=== PATIENT | female | born 1985 | race Caucasian/White ===

== ENCOUNTER 2019-10-15 09:32 | Emergency (ER) | payer OTHER, SELFPAY ==
[2019-10-15] MEDS ORDERED: SODIUM CHLORIDE 0.9% 1000ML 1,000 ML IVS ONE (09:46)
[2019-10-15] MEDS ORDERED: ONDANSETRON ODT 8 MG TAB SL ONE (09:46)
[2019-10-15] MEDS ORDERED: PANTOPRAZOLE SODIUM IV 40 MG VIAL IV ONE (09:58)
[2019-10-15] MEDS ORDERED: PROMETHAZINE HCL INJ 25 MG in SODIUM CHLORIDE 0.9% 50ML 50 ML IVPB ONE (09:58)
[2019-10-15] MEDS ORDERED: PENICILLIN BENZATHINE 1.2 MU 1.2 MU/2 ML SYG IM ONE (10:52)
--- NOTE | 2019-10-15 11:16 | RAD ---
EXAM: Abdomen Series CLINICAL INDICATION: Abdominal pain COMPARISON: There is no previous study for comparison. FINDINGS: A single view of the chest reveals the heart size is normal. The pulmonary vessels are unremarkable. The lungs are clear. There is no evidence of free air under the hemidiaphragms. 2views of the abdomen were obtained. There is a nonspecific bowel gas pattern with no radiographic evidence of bowel obstruction. There are no dilated loops of small bowel. There is no evidence of pneumoperitoneum or pathologic calcifications. Surgical changes from lap band procedure are noted. IMPRESSION: No evidence of an acute intraabdominal process. Electronically signed by: Pérez Valverde MD 10/15/2019 11:12 AM CDT
[2019-10-15] MEDS ORDERED: MORPHINE SULFATE INJ 10 MG/ML VIAL IV ONE (11:18)
[2019-10-15] MEDS ORDERED: ALUM & MAG HYDROX-SIMETHICONE 30 ML, LIDOCAINE VISCOUS 2% 15 ML PO ONE ×2 (11:18)
--- NOTE | 2019-10-15 12:12 | CT ---
EXAM: CT Abdomen and Pelvis With Intravenous Contrast CLINICAL HISTORY: severe abd pain, nv, hx lap band pblms TECHNIQUE: Axial computed tomography images of the abdomen and pelvis with intravenous contrast. Sagittal and coronal reformatted images were created and reviewed. This CT exam was performed using one or more of the following dose reduction techniques: automated exposure control, adjustment of the mA and/or kV according to patient size, and/or use of iterative reconstruction technique. COMPARISON: 12/02/2012. FINDINGS: Lung bases: Unremarkable. No mass. No consolidation. ABDOMEN: Liver: Unremarkable. No mass. Gallbladder and bile ducts: Unremarkable. No calcified stones. No ductal dilation. Pancreas: Unremarkable. No mass. No ductal dilation. Spleen: Unremarkable. No splenomegaly. Adrenals: Unremarkable. No mass. Kidneys and ureters: Unremarkable. No solid mass. No hydronephrosis. Stomach and bowel: Gastric band in good position. There is fluid distention and mild thickening of the fundus cranial to the band. PELVIS: Appendix: No findings to suggest acute appendicitis. Bladder: Unremarkable. No mass. Reproductive: Unremarkable as visualized. ABDOMEN and PELVIS: Intraperitoneal space: Unremarkable. No free air. No significant fluid collection. Bones/joints: No acute fracture. No dislocation. Soft tissues: Unremarkable. Vasculature: Unremarkable. No abdominal aortic aneurysm. Lymph nodes: Mildly prominent nonspecific right lower quadrant lymph nodes unchanged likely reactive. Tubes, lines and devices: There is a 5.9 x 5.9 x 5.5 cm cyst in the left ovary. Intrauterine contraceptive device in good position. IMPRESSION: 1. Mild thickening and fluid distention of the gastric fundus cranial to the gastric band. Mild gastritis not excluded. 2. Left ovarian cyst measuring 5.9 cm. Recommend pelvic sonography to include Doppler assessment of the ovaries. Electronically signed by: Geraldine Gardner MD 10/15/2019 12:09 PM CDT
[2019-10-15] MEDS ORDERED: SCOPOLAMINE PATCH 1.5MG 1 EA TD ONE (12:23)
--- NOTE | 2019-10-15 12:51 | ED.PDOC ---
History of Present Illness - General Chief Complaint: Abdominal Pain Stated Complaint: Abdominal pain and vomitting x 3 days Time Seen by Provider: 10/15/19 09:44 Source: patient Exam Limitations: no limitations - History of Present Illness Initial Comments: The patient is a 33-year-old female with a lap band in place presenting after 3 to 4 days of nausea and vomiting. The patient reports that she thinks she is going to have to have her LAP-BAND out as she saw the bariatric specialist around 3 weeks ago who did a swallow study indicating that he felt that the LAP-BAND might be growing into the stomach. The patient has been off of all acid reducing medications for at least a month. Prior to that she was on omeprazole high dose twice daily. She does have known gallstones but is not really having right upper quadrant pain. The patient has been having a small amount of blood in the vomitus as well. She has been up several times here. Abdominal pain appears to be in the epigastric area. The patient reports that she cannot come into the hospital secondary to having to take care of her daughter who has multiple medical problems. Timing/Duration: other - 3 days Severity: moderate Improving Factors: nothing Worsening Factors: nothing Associated Symptoms: loss of appetite, malaise, nausea/vomiting Allergies/Adverse Reactions: Allergies NO KNOWN ALLERGY Allergy (Verified 10/15/19 09:56) Home Medications: Ambulatory Orders Omeprazole 40 mg PO BID #60 cap 10/15/19 Ondansetron Odt [Zofran ODT] 4 mg PO Q8HR PRN #10 tab 10/15/19 Promethazine HCl 25 mg PO Q6H PRN #14 tab 10/15/19 Promethazine HCl 25 mg MO Q8HRS PRN #14 sup 10/15/19 Sucralfate Tab [Carafate Tab] 1 gm PO QID #120 tab 10/15/19 Review of Systems - Review of Systems Constitutional: States: malaise EENTM: States: no symptoms reported Respiratory: States: no symptoms reported Cardiology: States: no symptoms reported Gastrointestinal/Abdominal: States: abdominal pain, nausea, vomiting Genitourinary: States: no symptoms reported Musculoskeletal: States: no symptoms reported Skin: States: no symptoms reported Neurological: States: no symptoms reported Endocrine: States: no symptoms reported All other Systems: No Change from Baseline Past Medical History (General) - Patient Medical History Hx Stroke: No Hx Asthma: No Hx of COPD: No Hx Cardiac Disorders: No Hx Congestive Heart Failure: No Hx Hypertension: No Hx Diabetes: No Hx Cancer: No Hx Hepatitis C: No Surgical History: gastric bypass, other - Vaccination History Hx Tetanus, Diphtheria Vaccination: No Hx Influenza Vaccination: Yes Hx Pneumococcal Vaccination: No - Social History Hx Tobacco Use: No Hx Alcohol Use: No Hx Substance Use: No Hx Substance Use Treatment: No Hx Depression: No - Female History Patient is a Female of Child Bearing Age (10 -59 yrs old): Yes Patient : No - Denies Family Medical History - Family History Mother Family History: No Known Living Status: Still Living Physical Exam - Physical Exam General Appearance: Alert, Anxious, Obvious distress Eye Exam: bilateral normal Ears, Nose, Throat: hearing grossly normal, normal pharynx Neck: full range of motion, supple Respiratory: lungs clear, normal breath sounds, no respiratory distress, no accessory muscle use Cardiovascular/Chest: normal peripheral pulses, regular rate, rhythm, no edema Peripheral Pulses: radial,right: 2+, radial,left: 2+ Gastrointestinal/Abdominal: soft, other - Obese. Epigastric tenderness to palpation. No definite rebound or peritoneal signs. Surgical sites are noted. Rectal Exam: deferred Back Exam: no CVA tenderness, no vertebral tenderness Extremity: normal range of motion, non-tender, normal inspection, no pedal edema, normal capillary refill Neurologic: event producer II-XII nml as tested, alert, oriented x 3, depressed affect Skin Exam: normal color Comments: Vital Signs - 24 hr 10/15/19 10/15/19 10/15/19 09:35 10:33 11:00 Temperature 98.6 F Pulse Rate [ 62 95 H 63 Pulse ox] Respiratory 20 28 H 16 Rate Blood Pressure 148/109 124/72 [L brachial] O2 Sat by Pulse 92 L 97 Oximetry 10/15/19 12:16 Temperature Pulse Rate [ 56 L Pulse ox] Respiratory 16 Rate Blood Pressure 116/71 [L brachial] O2 Sat by Pulse 96 Oximetry Progress - Progress Progress: 10/15/19 12:53 The patient is a 33-year-old female presented emergency room secondary to 3 days of nausea and vomiting. The patient does appear to have a significant gastritis likely related to her lap band. The patient has received IV fluids as well as nausea and pain medications here. The patient is going to be written for Zofran ODT's along with oral and MO Phenergan to help control nausea and vomiting. We did place a scopolamine patch which can remain in place for up to 3 days. She does need to remove this if she is developing any significant dizziness or confusion. The patient will be also be written for omeprazole twice daily along with Carafate 4 times daily. She also needs to picker and sorter load and unload some liquid Maalox or Mylanta for as needed use. She needs to maintain a liquid diet for the next 4 or 5 days. She needs to keep her self well-hydrated. She also needs to follow back up with her bariatric specialist early this coming week. ER warnings are given for any abrupt worsening. lynne kothari [phone] - Results/Orders Results/Orders: Acute abdominal series shows the LAP-BAND. No obvious obstruction. No perforation. CT scan of abdomen pelvis shows a 6 cm ovarian cyst. There is also thickening of the gastric mucosa proximal to the LAP-BAND. No definite obstruction. See report for details. Laboratory Tests 10/15/19 10/15/19 10/15/19 09:45 09:46 10:09 WBC RBC Hgb Hct MCV MCH MCHC RDW Plt Count MPV Absolute Neuts (auto) Absolute Lymphs (auto) Absolute Monos (auto) Absolute Eos (auto) Absolute Basos (auto) Neutrophils % Lymphocytes % Monocytes % Eosinophils % Basophils % PT INR PTT (SP) Sodium 142 Potassium 3.6 Chloride 107 Carbon Dioxide 23 Anion Gap 15.6 BUN 19 H Creatinine 0.55 L BUN/Creatinine Ratio 34.5 H Random Glucose 90 Serum Osmolality 284.9 Lactic Acid Calcium 9.2 Magnesium 2.1 Total Bilirubin 1.3 H AST 15 ALT 14 Alkaline Phosphatase 57 Creatine Kinase 117 CK-MB (CK-2) 1.0 CK-MB (CK-2) % Not Reportable Troponin I < 0.02 Serum Total Protein 8.5 H Albumin 4.8 Globulin 3.7 H Albumin/Globulin Ratio 1.3 Amylase 51 Lipase 20 L Serum HCG, Qual Negative Group A Strep Rapid Positive 10/15/19 10/15/19 10/15/19 10:09 10:09 10:09 WBC 9.5 RBC 4.98 Hgb 15.0 Hct 44.1 MCV 88.5 MCH 30.2 MCHC 34.1 RDW 13.9 Plt Count 244 MPV 8.3 Absolute Neuts (auto) 7.70 H Absolute Lymphs (auto) 1.40 Absolute Monos (auto) 0.30 Absolute Eos (auto) 0.10 Absolute Basos (auto) 0.00 Neutrophils % 80.3 H Lymphocytes % 14.8 L Monocytes % 3.4 Eosinophils % 1.1 Basophils % 0.4 PT 10.4 INR 1.05 PTT (SP) 25.1 Sodium Potassium Chloride Carbon Dioxide Anion Gap BUN Creatinine BUN/Creatinine Ratio Random Glucose Serum Osmolality Lactic Acid 0.8 Calcium Magnesium Total Bilirubin AST ALT Alkaline Phosphatase Creatine Kinase CK-MB (CK-2) CK-MB (CK-2) % Troponin I Serum Total Protein Albumin Globulin Albumin/Globulin Ratio Amylase Lipase Serum HCG, Qual Group A Strep Rapid - EKG/XRAY/CT CT Ordered: No Departure - Departure Clinical Impression: Dehydration Gastritis Qualifiers: Gastritis type: unspecified gastritis Chronicity: chronic Gastritis bleeding: without bleeding Qualified Code(s): K29.50 - Unspecified chronic gastritis without bleeding Disposition: Discharge to Home or Self Care Condition: Fair Departure Forms: ED Discharge - Pt. Copy, Patient Portal Self Enrollment Instructions: DI for Abdominal Pain-Adult Diet: full liquid diet Activity: increase activity as tolerated Referrals: CHRISTINA BOATENG [Primary Care Provider] - 1-2 Weeks Prescriptions: Ondansetron Odt [Zofran ODT] 4 mg PO Q8HR PRN #10 tab PRN Reason: Nausea--Moderate Promethazine HCl 25 mg MO Q8HRS PRN #14 sup PRN Reason: Nausea/Vomiting Omeprazole 40 mg PO BID #60 cap Promethazine HCl 25 mg PO Q6H PRN #14 tab PRN Reason: Vomiting Sucralfate Tab [Carafate Tab] 1 gm PO QID #120 tab Home Medications: Ambulatory Orders Omeprazole 40 mg PO BID #60 cap 10/15/19 Ondansetron Odt [Zofran ODT] 4 mg PO Q8HR PRN #10 tab 10/15/19 Promethazine HCl 25 mg PO Q6H PRN #14 tab 10/15/19 Promethazine HCl 25 mg MO Q8HRS PRN #14 sup 10/15/19 Sucralfate Tab [Carafate Tab] 1 gm PO QID #120 tab 10/15/19 Additional Instructions: The patient is a 33-year-old female presented emergency room secondary to 3 days of nausea and vomiting. The patient does appear to have a significant gastritis likely related to her lap band. The patient has received IV fluids as well as nausea and pain medications here. The patient is going to be written for Zofran ODT's along with oral and MO Phenergan to help control nausea and vomiting. We did place a scopolamine patch which can remain in place for up to 3 days. She does need to remove this if she is developing any significant dizziness or confusion. The patient will be also be written for omeprazole twice daily along with Carafate 4 times daily. She also needs to picker and sorter load and unload some liquid Maalox or Mylanta for as needed use. She needs to maintain a liquid diet for the next 4 or 5 days. She needs to keep her self well-hydrated. She also needs to follow back up with her bariatric specialist early this coming week. Incidentally found that the patient does have a 6 cm ovarian cyst. She needs to follow-up with her primary care doctor to get set up for a pelvic ultrasound for follow-up of this. ER warnings are given for any abrupt worsening.
[2019-10-15 13:20] VITALS: BP 117/78; TEMP 98.5; O2SAT 98
== END 2019-10-15 13:20 | disposition home or self-care (01) ==
LOC: ER 09:32
DX: E86.0 Dehydration (principal); K29.50 Unspecified chronic gastritis without bleeding; N83.202 Unspecified ovarian cyst, left side; E66.9 Obesity, unspecified; R11.2 Nausea with vomiting, unspecified; Z98.84 Bariatric surgery status
CPT/HCPCS: 36415; 74019; 74177; 80053; 82150; 82550; 82553; 83605; 83690; 83735; 84484; 84703; 85025; 85610; 85730; 87040; 87880; A4216; J0561; J2270; J2550; J7030

== ENCOUNTER → 2020-04-03 | Outpatient (CLI) | payer SELFPAY ==
--- NOTE | 2020-04-03 17:34 | CT ---
EXAM DESCRIPTION: Chest w/wo Contrast 04/03/2020 5:25 PM [facility] CLINICAL HISTORY: 34 years, Female, ABSCESS OF LEFT AXILLA COMPARISON: Previous CT scan of the abdomen performed 10/15/2019. FINDINGS: Multiple transaxial tomograms of the chest were obtained from the lung apices through the adrenal glands, utilizing 5 mm slice thickness at 5 mm interval reconstruction before and after the administration of IV contrast. No dosing amount was provided for interpretation. Multiplanar reformats in the sagittal and coronal plane were generated and reviewed. An individualized dose optimization technique, Automated Exposure Control, was utilized for the performed procedure. The lungs parenchyma demonstrate to be clear. No masses nodules are identified. The trachea mainstem bronchus demonstrate to be normal. There is no significant pleural and/or pericardial effusions. The heart is normal in size. The thoracic aorta demonstrate to be unremarkable. There is no evidence for significant calcifications and/or aneurysm. The central pulmonary arteries demonstrate to be normal with no significant major filling defects. There is no significant mediastinal and/or hilar lymphadenopathy. The bone windows demonstrate no significant skeletal lesions. The axillary regions demonstrate right-sided normal sized lymph node with a fatty hilum with the largest one measuring approximately 0.7 cm on image 14/63 contrast image. On the left side there is abnormal skin thickening and haziness of the superficial subcutaneous tissue suggesting the possibility of surgical intervention and/or superficial cutaneous abscesses and evacuation. Small fatty hilum reactive lymph node is identified slightly close to the proximity measuring 4.8 mm solid component on image 10/63 and 0.7 cm on image 12/63. No definitive abnormal lymph nodes are demonstrated. Incidentally is noted presence of a solid lesion within the medial aspect of the left breast measuring 1.1 x 3.2 cm on axial image 28/63 postcontrast perhaps corresponding to a fibroadenoma although this should be confirmed and/or correlated with breast ultrasound if not already done. The visualized portions of the upper abdomen demonstrate presence of surgical andrew within the stomach. Otherwise the upper abdomen demonstrate to unremarkable. IMPRESSION: UNREMARKABLE CT SCAN OF THE CHEST WITH AND WITHOUT CONTRAST. SUPERFICIAL SKIN THICKENING/HAZINESS ALONG THE LEFT AXILLARY AREA WITH FINDINGS PERHAPS INGESTING SUGGESTING A TINY SUPERFICIAL EVACUATED ABSCESS IN/OR SURGERY. SMALL REACTIVE LYMPH NODE WHICH ARE NONPATHOLOGIC IN SIZE. PRIOR PROXIMAL GASTRIC SURGERY WITH REMOVAL OF PREVIOUS LAP BAND. Electronically signed by: Andrea Garcia MD 04/03/2020 5:32 PM [facility]
== END ==
LOC: LAB.O 16:07
PROVIDERS: ATTEND Emergency Medicine
DX: L02.412 Cutaneous abscess of left axilla (principal); Z98.890 Other specified postprocedural states